=== PATIENT | female | born 1940 | race Caucasian/White ===

== ENCOUNTER 2016-10-13 18:21 | Inpatient (IN) | payer MEDICARE, OTHER ==
[~2016-10-13] VITALS: Ht 162.6 cm; Wt 58.2 kg
[~2016-10-13 18:21] MED LIST: ADVIL200 MG PO; ALLOPURINOL300 MG PO; ALOXII; ASPIRIN 81M81 MG/TA2 PO; CALCIUM 600MG+D1 TAB PO; CALCIUM PO; CALCIUM600 MG PO; CEFTIN 250250 MG/TAB PO; CHOLECALCIFEROL PO; COZAAR100 MG PO; CRANBERRY1 POW; CULTURELLE10 Billion PO; CURCUMIN95% PO; DIOVAN; DULERA1 ARO IH; FISH OIL1000 MG PO; FOLIC ACID 40400 MCG PO; FOLIC ACID800 MCG PO; GLUCOSAMINE & C1 CA1 PO; HYDROXYURE500 MG/CAP PO; IRON65 M1 PO; KLONOPIN 0.5MG0.5 MG PO; LASIX 20MG TABL20 MG PO; LEVAQUIN 750MG750 M1 PO; MAGNESIUM PO; MAGNESIUM200 MG PO; MAGNESIUM250 M1 PO; MAGNESIUM500 MG PO; MASON NATURAL1200 MG PO; MIRAPEX0.25 MG PO; NORCO 325 MG-51 TAB PO; PRIL40 PO; PROCRIT 1010 MU/VIAL IJ; REQUIP 0.5MG0.5 MG PO; REQUIP XL2 MG PO; RITE AID NATU200 MCG PO; SELENIUM2 PO; SUPER B COMPLEX PO; TEMOVATE0.05% TP; TOPROL XL 25MG25 MG PO; TRACE MINERALS PO; TRAMADOL PO; TYLENOL PM PO; ULTRAM 50MG TAB50 MG PO; VIDAZA IV; VITAMIN B COMPL1 T16 PO; VITAMIN B COMPL1 TA1 PO; VITAMIN C500 MG PO; VITAMIN D 1001000 IU PO; VITAMIN D1000 IU PO; XANAX .25M0.25 MG/TA PO; XANAX 0.5MG0.5 MG PO; XANAX0.25 MG PO; ZANTAC 7575 MG PO; ZINC PO; ZYLOPRIM 300MG300 MG PO; [UNRECOGNIZED DRUG - CODE] IV; [UNRECOGNIZED DRUG - CODE] SQ; [UNRECOGNIZED DRUG - REMARK]; [UNRECOGNIZED DRUG - REMARK] PO
[2016-10-13 19:27] LABS: ADJUSTED CALCIUM 8.8 mg/dL (8.4-10.2); ALANINE AMINOTRANSFERASE 25 U/L (9-52); ALBUMIN 4.4 gm/dL (3.5-5.0); ALKALINE PHOSPHATASE 46 U/L (50-136); ANION GAP 11 mmol/L (7-16); BLOOD UREA NITROGEN 28 mg/dL (7-17); CALCIUM 9.1 mg/dL (8.4-10.2); CARBON DIOXIDE 26 mmol/L (22-30); CHLORIDE 93 mmol/L (98-107); CREATININE, serum 1.66 mg/dL (0.52-1.25); GLUCOSE 136 mg/dL (74-106); LIPASE 117 U/L (23-300); MEAN CELL VOLUME 92 fl (80.0-100.0); MEAN CORPUSCULAR HGB CONC 32 g/dl (33.0-37.0); POTASSIUM 4.4 mmol/L (3.4-5.0); RED BLOOD COUNT 2.89 M/mm3 (4.10-5.30); REDCELL DISTRIBUTION WIDTH-CV 22.5 % (11.5-14.5); SODIUM 131 mmol/L (137-145); TOTAL PROTEIN 9.7 gm/dL (6.4-8.2)
[2016-10-13 19:29] LABS: WHITE BLOOD COUNT 32.2 K/mm3 (4.8-10.8)
[2016-10-13 19:30] LABS: HEMATOCRIT 26.6 % (37.0-47.0); HEMOGLOBIN 8.6 g/dl (12.5-16.0); MEAN CORPUSCULAR HEMOGLOBIN 30 pg (27.0-31.0); PLATELET COUNT 23 K/mm3 (130-400)
[2016-10-13 19:39] LABS: TROPONIN-I < 0.012 ng/mL (0.000-0.034)
[2016-10-13 20:05] LABS: BAND 50 % (0-10); METAMYELOCYTE 6 % (0-0); MYELOCYTE 3 % (0-0); NEUTROPHILS 7 % (42.0-75.2); TOTAL CELLS COUNTED 103
[2016-10-13 20:06] LABS: PLATELET ESTIMATE DECREASED (NORMAL)
[2016-10-13 20:09] LABS: HYPOCHROMIA 2+; POLYCHROMASIA 1+
[2016-10-13 20:10] LABS: POIKILOCYTOSIS 1+; TEAR DROP CELLS 1+
[2016-10-13 20:12] LABS: ADD PATHOLOGY DIFF REVIEW YES
[2016-10-13 21:17] LABS: PH 6 (5-8); SQUAMOUS EPITHELIAL 0-2 /hpf; URINE APPEARANCE Hazy; URINE BACTERIA None Seen /hpf; URINE BILIRUBIN Negative (NEGATIVE); URINE BLOOD Negative (NEGATIVE); URINE COLOR Yellow; URINE GLUCOSE Negative (NEGATIVE); URINE KETONE Negative (NEGATIVE); URINE RBC 0-2 /hpf; URINE UROBILINOGEN Negative (NEGATIVE); URINE WBC >50 /hpf
[2016-10-13] MEDS ORDERED: LEVAQUIN 750MG750 M1 PO (22:19)
[2016-10-13] MEDS ORDERED: PERCOCET 325 MG1 TA3 PO (22:19)
[2016-10-13] MEDS ORDERED: NORCO 325 MG-7.1 TAB PO (23:20)
[2016-10-14] VITALS (7 sets, daily range): BP systolic 105–136; BP diastolic 39–60; PULSE 64–87; TEMP 97–98.8
[2016-10-14] MEDS ORDERED: JAKAFI5 MG PO (01:00)
[2016-10-14] MEDS ORDERED: LEVAQUIN 750MG750 M1 PO ×4 (01:15→01:34)
[2016-10-14 08:23] LABS: PATHOLOGY DIFF REVIEW OK +
[2016-10-15 03:50] VITALS: BP 98/63; PULSE 86; TEMP 99.1
[2016-10-15 08:45] VITALS: BP 133/47; PULSE 66; TEMP 98.9
[2016-10-15 10:06] LABS: MEAN CORPUSCULAR HGB CONC 30 g/dl (33.0-37.0); RED BLOOD COUNT 2.43 M/mm3 (4.10-5.30); REDCELL DISTRIBUTION WIDTH-CV 22.5 % (11.5-14.5)
[2016-10-15 10:21] LABS: ADD PATHOLOGY DIFF REVIEW NO; HEMATOCRIT 23.6 % (37.0-47.0); HEMOGLOBIN 7.1 g/dl (12.5-16.0); MEAN CELL VOLUME 97 fl (80.0-100.0); MEAN CORPUSCULAR HEMOGLOBIN 29 pg (27.0-31.0); PLATELET COUNT 21 K/mm3 (130-400); WHITE BLOOD COUNT 22.7 K/mm3 (4.8-10.8)
[2016-10-15 12:00] VITALS: BP 119/43; PULSE 74; TEMP 98.2
[2016-10-15 14:10] LABS: BAND 9 % (0-10); MYELOCYTE 2 % (0-0); NEUTROPHILS 62 % (42.0-75.2); TOTAL CELLS COUNTED 100
[2016-10-15 14:15] LABS: HYPOCHROMIA 1+; POIKILOCYTOSIS 3+; TARGET CELLS 1+
[2016-10-15 14:16] LABS: ANISOCYTOSIS 2+; POLYCHROMASIA 1+; SCHISTOCYTES 2+; SPHEROCYTE 1+
[2016-10-15 15:30] VITALS: BP 150/41; PULSE 82; TEMP 99.6
[2016-10-15 19:53] VITALS: BP 129/41; PULSE 81; TEMP 99.1
[2016-10-15 23:16] VITALS: BP 122/54; PULSE 89; TEMP 99.1
[2016-10-16 02:33] VITALS: BP 125/55; PULSE 74; TEMP 99.2
[2016-10-16 08:35] VITALS: BP 117/50; PULSE 77; TEMP 98.9
[2016-10-16 09:48] LABS: CALCIUM 7.9 mg/dL (8.4-10.2); CREATININE, serum 1.58 mg/dL (0.52-1.25); POTASSIUM 3.9 mmol/L (3.4-5.0)
[2016-10-16 12:18] VITALS: BP 122/55; PULSE 77; TEMP 97.8
[2016-10-16 17:12] VITALS: BP 151/49; PULSE 93; TEMP 99.2
[2016-10-16 20:18] VITALS: BP 145/57; PULSE 90; TEMP 98.9
[2016-10-16 23:56] VITALS: BP 125/49; PULSE 82; TEMP 98.8
[2016-10-17] VITALS (10 sets, daily range): BP systolic 120–1236; BP diastolic 39–77; PULSE 76–93; TEMP 98.2–100
[2016-10-17 07:29] LABS: MEAN CELL VOLUME 97 fl (80.0-100.0); MEAN CORPUSCULAR HGB CONC 30 g/dl (33.0-37.0); REDCELL DISTRIBUTION WIDTH-CV 23.4 % (11.5-14.5)
[2016-10-17 07:33] LABS: ADD PATHOLOGY DIFF REVIEW NO; HEMATOCRIT 18.4 % (37.0-47.0); HEMOGLOBIN 5.6 g/dl (12.5-16.0); MEAN CORPUSCULAR HEMOGLOBIN 29 pg (27.0-31.0); PLATELET COUNT 29 K/mm3 (130-400); WHITE BLOOD COUNT 23.9 K/mm3 (4.8-10.8)
[2016-10-17 08:42] LABS: BAND 35 % (0-10); METAMYELOCYTE 6 % (0-0); MYELOCYTE 1 % (0-0); NEUTROPHILS 28 % (42.0-75.2); PLATELET ESTIMATE DECREASED (NORMAL); TOTAL CELLS COUNTED 101
[2016-10-17 08:43] LABS: ANISOCYTOSIS 2+; HYPOCHROMIA 3+; TEAR DROP CELLS 1+
[2016-10-17 08:44] LABS: SCHISTOCYTES 1+
[2016-10-18] VITALS (7 sets, daily range): BP systolic 120–145; BP diastolic 46–58; PULSE 76–94; TEMP 98.4–101.7
[2016-10-18 09:21] LABS: MEAN CELL VOLUME 94 fl (80.0-100.0); MEAN CORPUSCULAR HGB CONC 32 g/dl (33.0-37.0); RED BLOOD COUNT 2.57 M/mm3 (4.10-5.30); REDCELL DISTRIBUTION WIDTH-CV 21.6 % (11.5-14.5)
[2016-10-18 09:45] LABS: HEMATOCRIT 24.1 % (37.0-47.0); HEMOGLOBIN 7.6 g/dl (12.5-16.0); MEAN CORPUSCULAR HEMOGLOBIN 30 pg (27.0-31.0); PLATELET COUNT 25 K/mm3 (130-400); WHITE BLOOD COUNT 25.3 K/mm3 (4.8-10.8)
[2016-10-18 09:46] LABS: ADD PATHOLOGY DIFF REVIEW NO
[2016-10-18 10:08] LABS: ANISOCYTOSIS 2+; BAND 44 % (0-10); METAMYELOCYTE 3 % (0-0); MYELOCYTE 2 % (0-0); NEUTROPHILS 32 % (42.0-75.2); PLATELET ESTIMATE DECREASED (NORMAL); TEAR DROP CELLS 1+; TOTAL CELLS COUNTED 100
[2016-10-18 18:17] LABS: PH 5 (5-8); SQUAMOUS EPITHELIAL None Seen /hpf; URINE APPEARANCE Cloudy; URINE BACTERIA Many /hpf; URINE BILIRUBIN Negative (NEGATIVE); URINE BLOOD 1+ (NEGATIVE); URINE COLOR Yellow; URINE GLUCOSE Negative (NEGATIVE); URINE KETONE Negative (NEGATIVE); URINE RBC 20-50 /hpf; URINE UROBILINOGEN Negative (NEGATIVE); URINE WBC >50 /hpf
[2016-10-19] VITALS (7 sets, daily range): BP systolic 112–148; BP diastolic 47–59; PULSE 76–92; TEMP 97.4–100.8
[2016-10-19 07:47] LABS: MEAN CELL VOLUME 92 fl (80.0-100.0); MEAN CORPUSCULAR HGB CONC 32 g/dl (33.0-37.0); RED BLOOD COUNT 2.59 M/mm3 (4.10-5.30); REDCELL DISTRIBUTION WIDTH-CV 21.8 % (11.5-14.5)
[2016-10-19 07:55] LABS: CALCIUM 8.7 mg/dL (8.4-10.2); CREATININE, serum 1.18 mg/dL (0.52-1.25); POTASSIUM 3.8 mmol/L (3.4-5.0)
[2016-10-19 07:56] LABS: HEMATOCRIT 23.7 % (37.0-47.0); HEMOGLOBIN 7.6 g/dl (12.5-16.0); MEAN CORPUSCULAR HEMOGLOBIN 29 pg (27.0-31.0); PLATELET COUNT 25 K/mm3 (130-400); WHITE BLOOD COUNT 26.5 K/mm3 (4.8-10.8)
[2016-10-19 07:57] LABS: ADD PATHOLOGY DIFF REVIEW NO
[2016-10-19 08:18] LABS: BAND 39 % (0-10); METAMYELOCYTE 2 % (0-0); MYELOCYTE 2 % (0-0); NEUTROPHILS 30 % (42.0-75.2)
[2016-10-19 08:19] LABS: HYPOCHROMIA 2+; PLATELET ESTIMATE DECREASED (NORMAL); TOTAL CELLS COUNTED 101
[2016-10-20] VITALS (9 sets, daily range): BP systolic 106–137; BP diastolic 33–71; PULSE 68–84; TEMP 98.1–98.9
[2016-10-21 00:26] VITALS: BP 119/52; PULSE 76; TEMP 97.7
[2016-10-21 03:04] VITALS: BP 124/50; PULSE 80; TEMP 98.1
[2016-10-21 07:51] LABS: MEAN CELL VOLUME 91 fl (80.0-100.0); MEAN CORPUSCULAR HGB CONC 32 g/dl (33.0-37.0); RED BLOOD COUNT 2.64 M/mm3 (4.10-5.30); REDCELL DISTRIBUTION WIDTH-CV 22.8 % (11.5-14.5)
[2016-10-21 07:53] LABS: HEMOGLOBIN 7.7 g/dl (12.5-16.0); MEAN CORPUSCULAR HEMOGLOBIN 29 pg (27.0-31.0); WHITE BLOOD COUNT 28.5 K/mm3 (4.8-10.8)
[2016-10-21 07:54] LABS: ADD PATHOLOGY DIFF REVIEW NO; PLATELET COUNT 25 K/mm3 (130-400)
[2016-10-21 08:06] VITALS: BP 132/57; PULSE 82; TEMP 98.6
[2016-10-21 08:17] LABS: ANISOCYTOSIS 2+; BAND 43 % (0-10); BASOPHIL 1 % (0-2); EOSINOPHIL 1 % (0-4); METAMYELOCYTE 2 % (0-0); MYELOCYTE 5 % (0-0); NEUTROPHILS 28 % (42.0-75.2); PLATELET ESTIMATE DECREASED (NORMAL); SCHISTOCYTES 1+; TEAR DROP CELLS 1+; TOTAL CELLS COUNTED 100
[2016-10-21 08:18] LABS: OVALOCYTES 2+; TARGET CELLS 1+
[2016-10-21 11:45] VITALS: BP 139/56; PULSE 82; TEMP 98.6
[2016-10-21 16:28] VITALS: BP 150/65; PULSE 88; TEMP 99.9
[2016-10-21 20:41] VITALS: BP 143/62; PULSE 81; TEMP 98.4
[2016-10-22] VITALS (7 sets, daily range): BP systolic 121–146; BP diastolic 52–63; PULSE 73–93; TEMP 97.8–100.8
[2016-10-22 06:53] LABS: CALCIUM 8.5 mg/dL (8.4-10.2); CREATININE, serum 1.25 mg/dL (0.52-1.25); POTASSIUM 3.9 mmol/L (3.4-5.0)
[2016-10-22 06:54] LABS: MEAN CELL VOLUME 90 fl (80.0-100.0); MEAN CORPUSCULAR HGB CONC 32 g/dl (33.0-37.0); RED BLOOD COUNT 2.86 M/mm3 (4.10-5.30); REDCELL DISTRIBUTION WIDTH-CV 22.5 % (11.5-14.5)
[2016-10-22 06:59] LABS: HEMATOCRIT 25.7 % (37.0-47.0); HEMOGLOBIN 8.2 g/dl (12.5-16.0); MEAN CORPUSCULAR HEMOGLOBIN 29 pg (27.0-31.0); WHITE BLOOD COUNT 35.8 K/mm3 (4.8-10.8)
[2016-10-22 07:00] LABS: ADD PATHOLOGY DIFF REVIEW NO; PLATELET COUNT 21 K/mm3 (130-400)
[2016-10-22 07:18] LABS: URIC ACID 5.9 mg/dL (2.5-6.2)
[2016-10-22 07:34] LABS: ANISOCYTOSIS 2+; HYPOCHROMIA 2+; METAMYELOCYTE 4 % (0-0); MYELOCYTE 5 % (0-0); NEUTROPHILS 25 % (42.0-75.2); PLATELET ESTIMATE DECREASED (NORMAL); SCHISTOCYTES 1+
[2016-10-22 07:35] LABS: BAND 36 % (0-10)
[2016-10-22 07:43] LABS: TOTAL CELLS COUNTED 200
[2016-10-23] VITALS (7 sets, daily range): BP systolic 117–149; BP diastolic 50–62; PULSE 78–89; TEMP 97.8–99.1
[2016-10-23 07:22] LABS: MEAN CELL VOLUME 90 fl (80.0-100.0); MEAN CORPUSCULAR HGB CONC 32 g/dl (33.0-37.0); REDCELL DISTRIBUTION WIDTH-CV 22.5 % (11.5-14.5)
[2016-10-23 07:31] LABS: HEMATOCRIT 26.1 % (37.0-47.0); HEMOGLOBIN 8.4 g/dl (12.5-16.0); MEAN CORPUSCULAR HEMOGLOBIN 29 pg (27.0-31.0); PLATELET COUNT 22 K/mm3 (130-400); WHITE BLOOD COUNT 39.5 K/mm3 (4.8-10.8)
[2016-10-23 08:00] LABS: HYPOCHROMIA 2+; METAMYELOCYTE 3 % (0-0); MYELOCYTE 4 % (0-0); OVALOCYTES 1+; PLATELET ESTIMATE DECREASED (NORMAL); TEAR DROP CELLS 2+
[2016-10-23 08:01] LABS: ADD PATHOLOGY DIFF REVIEW YES; BAND 48 % (0-10); NEUTROPHILS 20 % (42.0-75.2); TARGET CELLS 1+
[2016-10-23 08:02] LABS: TOTAL CELLS COUNTED 200
[2016-10-24 03:27] VITALS: BP 134/56; PULSE 83; TEMP 97.4
[2016-10-24 06:41] LABS: MEAN CELL VOLUME 89 fl (80.0-100.0); MEAN CORPUSCULAR HGB CONC 33 g/dl (33.0-37.0); RED BLOOD COUNT 2.57 M/mm3 (4.10-5.30); REDCELL DISTRIBUTION WIDTH-CV 22.3 % (11.5-14.5)
[2016-10-24 06:51] LABS: HEMATOCRIT 22.8 % (37.0-47.0); HEMOGLOBIN 7.4 g/dl (12.5-16.0); MEAN CORPUSCULAR HEMOGLOBIN 29 pg (27.0-31.0); WHITE BLOOD COUNT 32.6 K/mm3 (4.8-10.8)
[2016-10-24 06:52] LABS: PLATELET COUNT 13 K/mm3 (130-400)
[2016-10-24 06:56] LABS: CALCIUM 8.2 mg/dL (8.4-10.2); CREATININE, serum 1.19 mg/dL (0.52-1.25); POTASSIUM 3.7 mmol/L (3.4-5.0)
[2016-10-24 07:41] VITALS: BP 165/58; PULSE 91; TEMP 98.2
[2016-10-24 08:28] LABS: PATHOLOGY DIFF REVIEW OK
[2016-10-24 11:01] VITALS: BP 113/62; PULSE 76; TEMP 98.2
[2016-10-24] MEDS ORDERED: ZYLOPRIM 100MG100 MG PO (14:30)
[2016-10-24] MEDS ORDERED: LASIX 20MG TABL20 MG PO (14:30)
[2016-10-24] MEDS ORDERED: KLOR-CON 1010 MEQ PO (14:30)
[2016-10-24] MEDS ORDERED: INVANZ INJ1 G/VIAL IV (14:30)
[2016-10-25] MEDS ORDERED: LASIX 20MG TABL20 MG PO (17:18)
[2016-10-25] MEDS ORDERED: KLOR-CON 1010 MEQ PO (17:18)
== END 2016-10-24 15:54 | disposition home health service (06) | DRG 543 ==
LOC: COL.ER 18:21 → MEDICAL 23:53
PROVIDERS: Emergency Medicine; Internal Medicine; Internal Medicine Medical Oncology; Nurse Practitioner Family
DX: M48.54XA Collapsed vertebra, not elsewhere classified, thoracic region, initial encounter for fracture (principal); C93.10 Chronic myelomonocytic leukemia not having achieved remission; N39.0 Urinary tract infection, site not specified; N17.9 Acute kidney failure, unspecified; C94.6 Myelodysplastic disease, not elsewhere classified; D46.9 Myelodysplastic syndrome, unspecified; I12.9 Hypertensive chronic kidney disease with stage 1 through stage 4 chronic kidney disease, or unspecified chronic kidney disease; N18.9 Chronic kidney disease, unspecified; B96.20 Unspecified Escherichia coli [E. coli] as the cause of diseases classified elsewhere; Z87.891 Personal history of nicotine dependence; M10.9 Gout, unspecified; M1A.9XX0 Chronic gout, unspecified, without tophus (tophi)
CPT/HCPCS: 99223-AI; 99232-AI; 99233-AI; 99239; G0378; G8978-GP; G8979-GP; G8987-GO; G8988-GO; J0696; J0881; J1170; J1885; J1940; J1956; J2185; J2405; J2550; J7030; J7040; J7050; P9040

== ENCOUNTER 2016-11-04 10:00 | Outpatient (RCR) | payer MEDICARE, OTHER ==
[2008-11-06 08:19] VITALS: BP 155/80
[2016-08-24 14:46] VITALS: BP 122/39; PULSE 73; TEMP 98
[2016-08-24 15:10] VITALS: BP 122/43; PULSE 68; TEMP 97.8
[2016-08-24 15:24] VITALS: BP 140/52; PULSE 70; TEMP 98.3
[2016-08-24 15:55] VITALS: BP 126/60; PULSE 71; TEMP 97.8
[2016-08-24 16:21] VITALS: BP 134/52; PULSE 74; TEMP 97.6
[2016-09-16] VITALS (9 sets, daily range): BP systolic 99–130; BP diastolic 34–78; PULSE 62–76; TEMP 97.8–98.9
[2016-09-16 11:32] LABS: MEAN CELL VOLUME 96 fl (80.0-100.0); MEAN CORPUSCULAR HGB CONC 32 g/dl (33.0-37.0); RED BLOOD COUNT 2.37 M/mm3 (4.10-5.30)
[2016-09-16 11:35] LABS: HEMATOCRIT 22.8 % (37.0-47.0); HEMOGLOBIN 7.2 g/dl (12.5-16.0); MEAN CORPUSCULAR HEMOGLOBIN 30 pg (27.0-31.0); PLATELET COUNT 21 K/mm3 (130-400); WHITE BLOOD COUNT 21.6 K/mm3 (4.8-10.8)
[2016-09-21 18:00] VITALS: BP 115/41; PULSE 70; TEMP 98.4
[2016-09-21 18:14] VITALS: BP 121/48; PULSE 70; TEMP 99.2
[2016-09-21 18:44] VITALS: BP 119/50; PULSE 73; TEMP 99
[2016-09-28 23:42] LABS: HEMATOCRIT 22.3 % (37.0-47.0)
[2016-09-28 23:49] LABS: HEMOGLOBIN 6.7 g/dl (12.5-16.0)
[2016-09-30] VITALS (9 sets, daily range): BP systolic 113–140; BP diastolic 40–47; PULSE 73–78; TEMP 98.1–98.9
[2016-10-05 15:25] VITALS: BP 131/61; PULSE 83; TEMP 98.1
[2016-10-05 15:40] VITALS: BP 126/50; PULSE 79; TEMP 98.6
[2016-10-05 15:55] VITALS: BP 114/43; PULSE 83; TEMP 98.2
[2016-10-05 17:05] VITALS: BP 125/50; PULSE 77; TEMP 98.4
[2016-10-05 17:10] VITALS: BP 120/50; PULSE 80; TEMP 98.4
[2016-10-25 17:00] VITALS: BP 127/41; PULSE 80; TEMP 99.4
[2016-10-26 13:43] VITALS: BP 141/63; PULSE 80; TEMP 98.8
[2016-10-26 13:58] VITALS: BP 142/60; PULSE 81; TEMP 98.3
[2016-10-26 14:28] VITALS: BP 140/63; PULSE 73; TEMP 98.3
[2016-10-26 14:48] VITALS: BP 139/61; PULSE 77; TEMP 98.3
[2016-10-26 15:48] VITALS: BP 154/66; PULSE 79; TEMP 98.3
[2016-10-27 10:41] VITALS: BP 139/58; PULSE 79; TEMP 97.9
[2016-10-28 11:45] VITALS: BP 126/45; PULSE 77; TEMP 98.2
[2016-10-29 08:03] VITALS: BP 119/37; PULSE 81; TEMP 98.1
[2016-10-30 07:53] VITALS: BP 113/50; PULSE 83; TEMP 97.8
[2016-10-31 09:48] VITALS: BP 115/47; PULSE 77; TEMP 98
[2016-11-01 10:59] VITALS: BP 115/49; PULSE 76; TEMP 97.6
[2016-11-02 10:00] VITALS: BP 124/43; PULSE 83; TEMP 98.7
[2016-11-03 09:59] VITALS: BP 117/41; PULSE 88; TEMP 99.9
[~2016-11-04] VITALS: Ht 160 cm; Wt 63.6 kg
[2016-11-04 09:56] VITALS: BP 137/39; PULSE 88; TEMP 98
[~2016-11-04 10:00] MED LIST changes: +INVANZ INJ1 G/VIAL IV; +JAKAFI5 MG PO; +KLOR-CON 1010 MEQ PO; +NORCO 325 MG-7.1 TAB PO; +PERCOCET 325 MG1 TA3 PO; +ZYLOPRIM 100MG100 MG PO
== END 2016-11-22 | disposition still patient (30) ==
LOC: EUO
PROVIDERS: Internal Medicine; Internal Medicine Medical Oncology
DX: C93.10 Chronic myelomonocytic leukemia not having achieved remission (principal); Z45.2 Encounter for adjustment and management of vascular access device
CPT/HCPCS: J1335; J1644; J7050; P9037; P9040